=== PATIENT | male | born 1945 | race African-American/Black ===

== ENCOUNTER 2016-09-15 09:45 | Emergency (ER) | payer OTHER ==
[2016-09-15 10:25] LABS: URINE SOURCE CLEAN CATCH
[2016-09-15 10:38] LABS: BILIRUBIN URINE NEGATIVE (NEGATIVE); BLOOD URINE 4+ (NEGATIVE); CLARITY VERY CLOUDY (CLEAR); COLOR AMBER; GLUCOSE URINE NEGATIVE (NEGATIVE); LEUKOCYTES URINE 2+ (NEGATIVE); NITRITE URINE POSITIVE (NEGATIVE); PH URINE 6.5; UROBILINOGEN URINE NORMAL
[2016-09-15 10:47] LABS: URINE CULTURE PL NEEDED? YES; URINE EPITHELIAL CELLS <10 /HPF (<10); URINE RBC TNTC /HPF (<10)
[2016-09-15] MEDS ORDERED: ROCEPHIN IM ONE (11:01)
[2016-09-15] MEDS ORDERED: XYLOCAINE-MPF 1% INJ ONE (11:01)
--- NOTE | 2016-09-15 11:04 | PROVIDER DOCUMENTATION ---
HPI-General Adult - General Source: patient - History of Present Illness -Gen Adult Nature of Presenting Problems: Pt is a 70 yom that presents to er with cc of dysuria x 2 days with diarrhea. Denies abd pain,hematuria,n,v,f. Quality of Pain: reports: burning Severity: reports: moderate Onset/Duration: reports: 2 days ago Timing: reports: still present Similar Symptoms Previously?: No Recently seen or treated by another doctor?: No <Herminio Lombardo - Last Filed: 09/15/16 11:02> <Lorrie Hebert - Last Filed: 09/15/16 12:16> - General Chief Complaint: UTI Symptoms Stated Complaint: UTI SX Time Seen by Provider: 09/15/16 10:59 Allergies/Adverse Reactions: Patient Allergies Allergy/AdvReac Type Severity Reaction Status Date / Time No Known Allergies Allergy Verified 09/15/16 10:14 Home Medications: Home Medication List Medication Instructions Recorded Confirmed Last Taken Type Amlodipine [Norvasc] 10 mg PO DAILY 11/04/14 07/04/16 07/12/15 History Metoprolol [Lopressor] 50 mg PO BID 11/04/14 07/04/16 07/12/15 History Allopurinol 100 mg PO DAILY 05/27/16 07/04/16 Unknown History Ciprofloxacin HCl [Cipro] 500 mg PO BID #14 tablet 05/27/16 07/04/16 Unknown Rx Ergocalciferol (Vitamin D2) 50,000 unit PO DAILY 05/27/16 07/04/16 Unknown History [Vitamin D] Esomeprazole [Nexium] 40 mg PO DAILY 05/27/16 07/04/16 Unknown History Fluticasone Propionate [Children's 50 mcg BRINDA DAILY 05/27/16 07/04/16 Unknown History Flonase Allergy Rlf] Magnesium Oxide [Magnesium] 250 mg PO DAILY 05/27/16 07/04/16 Unknown History Promethazine [Phenergan] 25 mg PO Q6H PRN PRN #12 tablet 05/27/16 07/04/16 Unknown Rx Allopurinol [Zyloprim] 100 mg PO DAILY #30 tablet 07/04/16 Unknown Rx Prednisone 40 mg PO DAILY #10 tablet 07/04/16 Unknown Rx Acetaminophen with Codeine 1 each PO Q6H PRN PRN #20 tablet 07/16/16 Unknown Rx [Tylenol with Codeine #3 Tablet] Magnesium Oxide [Magnesium] 500 mg PO BID #60 capsule 07/16/16 Unknown Rx Naproxen 500 mg PO BID #30 tablet 07/16/16 Unknown Rx Ciprofloxacin HCl [Cipro] 500 mg PO BID #20 tablet 09/15/16 Unknown Rx Review of Systems - Adult - REVIEW OF SYSTEMS - ADULT Constitutional: denies: chills, fever, fatique Eyes: reports: no symptoms reported Ears, Nose, Mouth & Throat: denies: ear pain, sinus problem, throat pain Cardiovascular: reports: no symptoms reported Respiratory: denies: cough, shortness of breath, wheezing Gastrointestinal: reports: diarrhea. denies: abdominal pain, nausea, vomiting Genitourinary: reports: dysuria. denies: frequent UTI's, hematuria Musculoskeletal: reports: no symptoms reported Integumentary: reports: no symptoms reported Neurological: reports: no symptoms reported Psychiatric: reports: no symptoms reported Endocrine: reports: no symptoms reported Hematologic/Lymphatic: reports: no symptoms reported Allergic/Immunologic: reports: no symptoms reported All Other Systems: Reviewed and Negative <Herminio Lombardo - Last Filed: 09/15/16 11:02> Past History - Adult - PAST MEDICAL HISTORY-ADULT Review of Records: reports: Nursing Assessment Review, Medications Reviewed Major Childhood Illnesses: reports: denies history Cardiovascular: reports: CHF, HTN Respiratory: reports: asthma, COPD Gastrointestinal: reports: GERD, hepatitis Genitourinary: reports: prostate cancer - PRIOR SURGERIES/PROCEDURES Surgical/Procedure History: reports: orthopedic (extremity) - IMMUNIZATION STATUS Childhood Immunizations: See Nurse Assessment Flu Vaccine: See Nurse Assessment - SOCIAL HISTORY Smoking: cigarettes, less than 1 pack/day Provider spent 3-5 mins advising pt. on dangers of tobacco.: Discussed manners to quit use, and f/u contacts for add'l counseling. Substance Use: none/never <Herminio Lombardo - Last Filed: 09/15/16 11:02> Physical Exam-General - PHYSICAL EXAM-ADULT Initial Vital Signs Reviewed: Yes - CONSTITUTIONAL General Appearance: appears well, alert, no apparent distress - EYES Eyes: PERRL/EOMI - HEAD, EARS, NOSE, MOUTH & THROAT HENMT: moist mucous membranes, normal ENT inspection, TMs normal, pharynx normal - RESPIRATORY Respiratory: chest non-tender, lungs clear, normal breath sounds, no pleuratic chest pain, no respiratory distress, no accessory muscle use - CARDIOVASCULAR Cardiovascular: regular rate, rhythm, no edema, no gallop, no JVD, no murmur - GASTROINTESTINAL (ABDOMEN) Abdominal Exam: normal bowel sounds, non tender, soft, no organomegaly, no pulsatile mass - MUSCULOSKELETAL Back Exam: normal inspection, no CVA tenderness, no vertebral tenderness Extremity: normal range of motion, non-tender, normal gait - SKIN Integumentary: normal color, normal turgor, warm/dry - PSYCHIATRIC Psych/Mental Status: normal mood/affect, normal thought content, normal thought process, oriented x 3 <Herminio Lombardo - Last Filed: 09/15/16 11:02> Progress - PLAN OF CARE/RESULTS Progress/Plan/Lab Results: Orders Category Date Time Status CBC WITH DIFF [HEME] Stat Lab 09/15/16 11:[address] W/POSS RFLX CULT [URINALYSIS] Stat Lab 09/15/16 10:15 Completed URINE CULTURE [RM] Routine Lab 09/15/16 10:47 Ordered CefTRIAXONE [Rocephin] Med 09/15/16 11:01 Discontinued 1 gm IM NOW ONE Lidocaine 1% Pf [Xylocaine-Mpf 1%] Med 09/15/16 11:01 Discontinued 5 ml INJ NOW ONE Vital Signs - 24 hr 09/15/16 10:10 Temperature 98.3 F Pulse Rate 94 H Respiratory 18 Rate Blood Pressure 138/79 O2 Sat by Pulse 95 Oximetry Laboratory Tests 09/15/16 10:15 Urine Source CLEAN CATCH Urine Color ENEDINA Urine Clarity VERY CLOUDY A Urine pH 6.5 Ur Specific [place] 1.020 Urine Protein 3+(500 mg/dL) A Urine Ketones TRACE Urine Blood 4+ Urine Nitrite POSITIVE A Urine Bilirubin NEGATIVE Urine Urobilinogen NORMAL Urine Microscopic RBC TNTC A Urine WBC 2+ A Urine Microscopic WBC 10-20 A Ur Epithelial Cells <10 Urine Bacteria 1+ Urine Glucose NEGATIVE <Herminio Lombardo - Last Filed: 09/15/16 11:02> - PLAN OF CARE/RESULTS Progress/Plan/Lab Results: Laboratory Tests 09/15/16 09/15/16 10:15 11:41 WBC 9.93 RBC 3.76 L Hgb 13.7 L Hct 40.8 L MCV 108.5 H MCH 36.4 H MCHC 33.6 RDW Std Deviation 14.1 Plt Count 198 MPV 10.3 Immature Gran % (Auto) 0.2 Neut % (Auto) 54.0 Lymph % (Auto) 34.4 [place] % (Auto) 10.9 H Eos % (Auto) 0.3 Baso % (Auto) 0.2 Immature Gran # (Auto) 0.02 Neut # (Auto) 5.36 Lymph # (Auto) 3.42 H [place] # (Auto) 1.08 H Eos # (Auto) 0.03 Baso # (Auto) 0.02 Urine Source CLEAN CATCH Urine Color ENEDINA Urine Clarity VERY CLOUDY A Urine pH 6.5 Ur Specific [place] 1.020 Urine Protein 3+(500 mg/dL) A Urine Ketones TRACE Urine Blood 4+ Urine Nitrite POSITIVE A Urine Bilirubin NEGATIVE Urine Urobilinogen NORMAL Urine Microscopic RBC TNTC A Urine WBC 2+ A Urine Microscopic WBC 10-20 A Ur Epithelial Cells <10 Urine Bacteria 1+ Urine Glucose NEGATIVE Orders Category Date Time Status CBC WITH DIFF [HEME] Stat Lab 09/15/16 11:[address] W/POSS RFLX CULT [URINALYSIS] Stat Lab 09/15/16 10:15 Completed URINE CULTURE [RM] Routine Lab 09/15/16 10:47 Ordered CefTRIAXONE [Rocephin] Med 09/15/16 11:01 Discontinued 1 gm IM NOW ONE Lidocaine 1% Pf [Xylocaine-Mpf 1%] Med 09/15/16 11:01 Discontinued 5 ml INJ NOW ONE Vital Signs - 24 hr 09/15/16 10:10 Temperature 98.3 F Pulse Rate 94 H Respiratory 18 Rate Blood Pressure 138/79 O2 Sat by Pulse 95 Oximetry <Lorrie Hebert - Last Filed: 09/15/16 12:16> Departure <Herminio Lombardo - Last Filed: 09/15/16 11:02> - Departure Time of Disposition Order: 12:15 Certified Medical Emergency: Emergent <Lorrie Hebert - Last Filed: 09/15/16 12:16> - Departure DIAGNOSIS: UTI (urinary tract infection) Qualifiers: Urinary tract infection type: site unspecified Hematuria presence: without hematuria Qualified Code(s): N39.0 - Urinary tract infection, site not specified Diarrhea Qualifiers: Diarrhea type: unspecified type Qualified Code(s): R19.7 - Diarrhea, unspecified Disposition: HOME 01 Condition: Stable Additional Instructions: Medication as directed Imodium OTC ED Follow Up Instructions: You have been treated by a care provider in the Emergency Department. These instructions are being provided to you so you can have an understanding of how to care for yourself upon discharge. Upon discharge from the Emergency Department, you are responsible for making arrangements for follow-up care by a physician of your choice. Take all prescribed medications as directed. Return to the Emergency Department immediately for any new or worsening symptoms. You may call the Physician Referral phone number at [phone] to obtain a list of Physicians who are taking new patients. Prescriptions: Ciprofloxacin HCl [Cipro] 500 mg PO BID #20 tablet Referrals: Vijay Mathew MD [Primary Care Provider] - Instructions: Urinary Tract Infection, [id number], Ciprofloxacin tablets, Diarrhea, [id number] Attestation - Scribe Verification/Attestation Scribe:: Herminio Lombardo Acting as Scribe for:: Lorrie Hebert Scribe documention review:: This chart was documented by a scribe and accurately reflects the service the provider performed and the decisions made by the provider. <Herminio Lombardo - Last Filed: 09/15/16 11:02> Physician Attestation
[2016-09-15 11:49] LABS: BASO% 0.2 % (0.0-0.8); EOS# 0.03 X1000 (0.0-0.7); EOS% 0.3 % (0.0-10.0); HEMATOCRIT 40.8 % (42.0-52.0); HEMOGLOBIN 13.7 g/dL (14.0-18.0); IMM GRAN# 0.02 X1000 (0.0-0.04); IMM GRAN% 0.2 % (0.0-0.5); LYMPH# 3.42 X1000 (1.2-3.4); LYMPH% 34.4 % (20.5-51.1); MANUAL DIFF NEEDED? YES; MCH 36.4 PG (27-31); MCHC 33.6 g/dL (33-37); MCV 108.5 FL (81-99); MONO# 1.08 X1000 (0.11-0.59); MONO% 10.9 % (1.7-9.3); MPV 10.3 FL (7.4-10.4); PLT 198 X1000 (130-400); RBC 3.76 XMIL (4.7-6.1)
[2016-09-15 12:19] VITALS: BP 132/77
[2016-09-15 12:28] LABS: LYMPHS 22 % (21-51); MONO 10 % (1-9)
== END 2016-09-15 12:22 | disposition home or self-care (01) ==
LOC: P.ED 09:45
DX: N39.0 Urinary tract infection, site not specified (principal); R19.7 Diarrhea, unspecified; R30.0 Dysuria; I10 Essential (primary) hypertension; J44.9 Chronic obstructive pulmonary disease, unspecified; K21.9 Gastro-esophageal reflux disease without esophagitis; F17.210 Nicotine dependence, cigarettes, uncomplicated; Z79.899 Other long term (current) drug therapy; Z71.6 Tobacco abuse counseling; Z85.46 Personal history of malignant neoplasm of prostate
CPT/HCPCS: 36415; 81001; 85025; 87077; 87088; 96372; J0696

== ENCOUNTER 2016-12-13 15:01 | Inpatient (IN) ==
--- NOTE | 2016-12-13 15:41 | Diag Imaging Result Doc PS360 ---
EXAM: FLAT/UPRIGHT ABD/1 VIEW CHEST HISTORY: abd pain TECHNIQUE: Three views COMPARISON: 05/27/2016 FINDINGS: There is right apical pleural thickening with increased markings similar to the prior exam and believed to be fibrosis. Prominent calcified mediastinal lymph nodes are present on the prior exam as well. No acute infiltrates. No free air beneath the diaphragm. There are coils in the mid abdomen. Questionable slight lead distended bowel loop in the lower left abdomen. No organomegaly. Prominent atherosclerosis. Mild degenerative bone spurs. IMPRESSION: 1.Right apical pleural thickening and fibrosis with large calcified mediastinal lymph nodes 2.Questionable minimally distended bowel loop in the lower left abdomen. No other abnormality. Electronically signed by Matthieu Shi 12/13/2016 3:38 PM
[2016-12-13 16:08] LABS: MANUAL DIFF NEEDED? NO
[2016-12-13 16:19] LABS: BASO% 0.2 % (0.0-0.8); EOS# 0.01 X1000 (0.0-0.7); EOS% 0.1 % (0.0-10.0); HEMATOCRIT 41.6 % (42.0-52.0); IMM GRAN# 0.03 X1000 (0.0-0.04); IMM GRAN% 0.3 % (0.0-0.5); LYMPH# 2.31 X1000 (1.2-3.4); LYMPH% 20.1 % (20.5-51.1); MCH 36.2 PG (27-31); MCHC 33.7 g/dL (33-37); MCV 107.5 FL (81-99); MONO# 1.32 X1000 (0.11-0.59); MONO% 11.5 % (1.7-9.3); MPV 10.8 FL (7.4-10.4); NEUT% 67.8 % (42.2-75.2); PLT 193 X1000 (130-400); RBC 3.87 XMIL (4.7-6.1)
[2016-12-13 16:36] LABS: ALBUMIN 4.3 g/dL (3.5-5.0); CALCIUM 8.9 mg/dL (8.8-10.2); POTASSIUM 3.9 mmol/L (3.5-5.1); TOTAL BILIRUBIN 0.6 mg/dL (0.20-1.00); TOTAL PROTEIN 8.6 g/dL (6.3-8.3)
[2016-12-13] MEDS ORDERED: NS 1,000 ML IV ONE ×2 (17:03→17:14)
[2016-12-13 17:04] LABS: BILIRUBIN URINE 1+ (NEGATIVE); BLOOD URINE NEGATIVE (NEGATIVE); CLARITY SL. CLOUDY (CLEAR); COLOR AMBER; GLUCOSE URINE NEGATIVE (NEGATIVE); LEUKOCYTES URINE 1+ (NEGATIVE); NITRITE URINE NEGATIVE (NEGATIVE); PROTEIN URINE 1+(30 mg/dL) mg/dL (NEGATIVE); SP GRAVITY URINE 1.025; UROBILINOGEN URINE 1+(1 mg/dL)
[2016-12-13 17:10] LABS: URINE CULTURE PL NEEDED? YES; URINE EPITHELIAL CELLS >10 /HPF (<10); URINE SOURCE CLEAN CATCH; URINE WBC <10 /HPF (<10)
--- NOTE | 2016-12-13 17:31 | PROVIDER DOCUMENTATION ---
This chart was entered by Frieda Swann Scribe, acting as scribe for Yashira Landa PA. HPI-Abdominal Pain/GI Problem - General Chief Complaint: Abdominal Pain Stated Complaint: ABD PAIN Time Seen by Provider: 12/13/16 15:46 Source: patient Allergies/Adverse Reactions: Patient Allergies Allergy/AdvReac Type Severity Reaction Status Date / Time No Known Allergies Allergy Verified 09/15/16 10:14 Home Medications: Home Medication List Medication Instructions Recorded Confirmed Last Taken Type Amlodipine [Norvasc] 10 mg PO DAILY 11/04/14 07/04/16 07/12/15 History Metoprolol [Lopressor] 50 mg PO BID 11/04/14 07/04/16 07/12/15 History Allopurinol 100 mg PO DAILY 05/27/16 07/04/16 Unknown History Ciprofloxacin HCl [Cipro] 500 mg PO BID #14 tablet 05/27/16 07/04/16 Unknown Rx Ergocalciferol (Vitamin D2) 50,000 unit PO DAILY 05/27/16 07/04/16 Unknown History [Vitamin D] Esomeprazole [Nexium] 40 mg PO DAILY 05/27/16 07/04/16 Unknown History Fluticasone Propionate [Children's 50 mcg BRINDA DAILY 05/27/16 07/04/16 Unknown History Flonase Allergy Rlf] Magnesium Oxide [Magnesium] 250 mg PO DAILY 05/27/16 07/04/16 Unknown History Promethazine [Phenergan] 25 mg PO Q6H PRN PRN #12 tablet 05/27/16 07/04/16 Unknown Rx Allopurinol [Zyloprim] 100 mg PO DAILY #30 tablet 07/04/16 Unknown Rx Prednisone 40 mg PO DAILY #10 tablet 07/04/16 Unknown Rx Acetaminophen with Codeine 1 each PO Q6H PRN PRN #20 tablet 07/16/16 Unknown Rx [Tylenol with Codeine #3 Tablet] Magnesium Oxide [Magnesium] 500 mg PO BID #60 capsule 07/16/16 Unknown Rx Naproxen 500 mg PO BID #30 tablet 07/16/16 Unknown Rx Ciprofloxacin HCl [Cipro] 500 mg PO BID #20 tablet 09/15/16 Unknown Rx - History of Present Illness-ABD Nature of Presenting Problems: 71 yo M presents to the ER with complaint of abdominal pain and diarrhea x3 days. Denies any nausea/vomiting. States he took a kpex (anti-diarrhea) and states he did not have relief. Describes the pain as cramping. Abdominal Pain Onset Location: reports: generalized abdomen Pain Radiation: reports: no radiation Quality of Pain: reports: cramping Onset/Duration: reports: 3 days ago Associated Symptoms: reports: diarrhea. denies: nausea, vomiting Review of Systems - Adult - REVIEW OF SYSTEMS - ADULT Constitutional: denies: chills, fever Eyes: reports: no symptoms reported Ears, Nose, Mouth & Throat: reports: no symptoms reported Cardiovascular: reports: no symptoms reported Respiratory: reports: no symptoms reported Gastrointestinal: reports: abdominal pain, diarrhea. denies: nausea, vomiting Genitourinary: reports: no symptoms reported Musculoskeletal: reports: no symptoms reported Integumentary: reports: no symptoms reported Neurological: reports: no symptoms reported Psychiatric: reports: no symptoms reported Endocrine: reports: no symptoms reported Hematologic/Lymphatic: reports: no symptoms reported Allergic/Immunologic: reports: no symptoms reported All Other Systems: Reviewed and Negative Past History - Adult - PAST MEDICAL HISTORY-ADULT Review of Records: reports: Nursing Assessment Review, Medications Reviewed Cardiovascular: reports: CHF, HTN Respiratory: reports: asthma, COPD Gastrointestinal: reports: GERD, hepatitis Genitourinary: reports: prostate cancer - PRIOR SURGERIES/PROCEDURES Surgical/Procedure History: reports: orthopedic (extremity) - IMMUNIZATION STATUS Childhood Immunizations: See Nurse Assessment Flu Vaccine: See Nurse Assessment Physical Exam-General - PHYSICAL EXAM-ADULT Initial Vital Signs Reviewed: Yes - CONSTITUTIONAL General Appearance: alert, no apparent distress - EYES Eyes: PERRL/EOMI, pink conjunctivae - HEAD, EARS, NOSE, MOUTH & THROAT HENMT: normocephalic/atraumatic, normal ENT inspection - NECK Neck: supple, normal inspection - RESPIRATORY Respiratory: no respiratory distress, no accessory muscle use - CARDIOVASCULAR Cardiovascular: normal peripheral pulses, regular rate, rhythm - GASTROINTESTINAL (ABDOMEN) Abdominal Exam: non tender, soft, hernia - MUSCULOSKELETAL Back Exam: no CVA tenderness, no vertebral tenderness Extremity: normal gait, normal inspection - SKIN Integumentary: normal color, warm/dry - NEUROLOGIC Neurologic: grossly normal, no motor/sensory deficits - PSYCHIATRIC Psych/Mental Status: normal mood/affect, normal thought content, normal thought process, oriented x 3 Progress - PLAN OF CARE/RESULTS Progress/Plan/Lab Results: Vital Signs - 8 hr 12/13/16 15:09 Temperature 98.8 F Pulse Rate 82 Respiratory Rate 18 Blood Pressure 111/66 O2 Sat by Pulse Oximetry 94 L Orders Category Date Time Status ED: Orthostatic Vital Signs (E as directed Care 12/13/16 15:45 Active NPO Diet 12/13/16 15:13 Active FLAT/UPRIGHT ABD/1 VIEW CHEST [RAD] Stat Exams 12/13/16 15:13 Completed AMYLASE [CHEM] Stat Lab 12/13/16 15:13 Ordered CBC WITH ELECTRONIC DIFF [HEME] Stat Lab 12/13/16 15:13 Ordered COMPREHENSIVE METABOLIC PANEL [CHEM] Stat Lab 12/13/16 15:13 Ordered LIPASE [CHEM] Stat Lab 12/13/16 15:13 Ordered Result Diagrams: 12/13/16 16:00 12/13/16 16:00 - XRAY 1 XRAY Study: Chest, Abdomen Impression: Abnormal (R apical pleural thickening and fibrosis with large calcified mediastinal lymph nodes, questionable minimally distended bowel loop in the lower left abdomen, no other abnormality, per radiologist) Departure - Departure Date of Disposition Decision: 12/13/16 Time of Disposition Decision: 17:29 DIAGNOSIS: Dehydration Acute renal failure Qualifiers: Acute renal failure type: unspecified Qualified Code(s): N17.9 - Acute kidney failure, unspecified Disposition: ADMITTED INPATIENT 09 Certified Medical Emergency: Emergent Condition: Stable Referrals and Follow-Ups: Vijay Mathew MD [Primary Care Provider] - - Critical Care Note This patient required my direct & personal management of CC.: No Attestation - Physician/ JAMIE Attestation Patient care was provided by Advanced Practice Provider:: Yes Advanced Practice Provider:: Yashira Landa Advanced Practice Provider documentation review:: The Mid-level provider documentation, treatment plan and medical decision making was reviewed by the physician who agrees with all treatment and medical decision making by the MLP. This chart was documented by the indicated scribe, (Frieda Swann Scribe) and accurately reflects the services I performed and decisions made by me, Yashira Landa PA, as attested by the provider's signature.
[2016-12-13] MEDS ORDERED: ZOFRAN IV PRN (18:29)
[2016-12-13] MEDS ORDERED: TYLENOL PO PRN (18:44)
[2016-12-13] MEDS ORDERED: SODIUM CHLORIDE 0.9% INJ SCH (20:15)
[2016-12-13] MEDS: PROTONIX IV SCH (22:42)
[2016-12-14] MEDS: NS 1,000 ML IV SCH ×2 (06:42→17:25)
[2016-12-14 06:57] LABS: HEMATOCRIT 33.4 % (42.0-52.0); HEMOGLOBIN 11.1 g/dL (14.0-18.0); MCHC 33.2 g/dL (33-37); MCV 108.4 FL (81-99); MPV 12.2 FL (7.4-10.4); RBC 3.08 XMIL (4.7-6.1)
[2016-12-14 07:06] LABS: ALBUMIN 3.3 g/dL (3.5-5.0); CALCIUM 7.7 mg/dL (8.8-10.2); MAGNESIUM 1.8 mg/dL (1.5-2.7); POTASSIUM 3.4 mmol/L (3.5-5.1); TOTAL BILIRUBIN 0.5 mg/dL (0.20-1.00); TOTAL PROTEIN 6.5 g/dL (6.3-8.3)
--- NOTE | 2016-12-14 07:57 | Diag Imaging Result Doc PS360 ---
KUB ABDOMEN - 12/13/2016 at 2200 INDICATION: SBO ? TECHNIQUE: COMPARISON: 12/13/2016 at 1536 FINDINGS: There is no change from prior. No significant gas distended loops of bowel or colon. IMPRESSION: No change from prior. Electronically signed by Miles Gomez 12/14/2016 7:55 AM
--- NOTE | 2016-12-14 08:22 | PROGRESS NOTE ---
DATE: 12/14/2016 SUBJECTIVE: Patient notes that he is feeling much better. He is tolerating pudding this morning. He is having less abdominal pain. Denies any nausea or vomiting. Denies any dysuria or urinary frequency. Denies any chest pain, palpitations, fevers, or chills. PHYSICAL EXAMINATION: Vital Signs: Temperature 98, pulse 78, respiratory rate 18, BP 103/43, saturations 93-96% on room air. General: Patient is awake, alert, oriented. He is currently in no real respiratory distress. Speech is regular. Memory is intact. HEENT: Normocephalic, atraumatic. Neck: Supple. CV: Regular rate. Chest: Clear. Abdomen: Soft. Positive bowel sounds. Nontender. Nondistended. Extremities: Moves all extremities. Neurologic: No focal changes. Skin: Warm and dry. No rashes. LABS: Sodium 135, potassium 3.4, BUN 39, creatinine 3, calcium 7.7, albumin 3.3. WBCs 9, hemoglobin and hematocrit 11 and 33. ASSESSMENT: 1. Acute on chronic renal failure. Serum creatinine at admission was 4.1. After intravenous fluids overnight, it is down to 3. His baseline is around 1.2-1.7 which was noted in May of 2016. 2. Leukocytosis, resolved, likely secondary to acute inflammatory response. 3. Anemia of chronic disease. 4. Hyponatremia, resolved. 5. Hypokalemia, stable. 6. Volume depletion. 7. Nausea and vomiting. 8. Abdominal pain. PLAN: We will continue patient on IV fluids. Recheck his labs in the a.m. Hopefully home in the next 1-2 days. We will continue to advance his diet to a GI soft. Further orders as needed. cc: Xavier Gaston MD
[2016-12-14] MEDS: PROTONIX IV SCH ×2 (08:37→20:14)
--- NOTE | 2016-12-14 08:58 | HISTORY AND PHYSICAL ---
PRIMARY CARE PHYSICIAN: Dr. Vijay Mathew. CHIEF COMPLAINT: Abdominal pain with diarrhea for 3 days that had progressively worsened. HISTORY OF PRESENTING ILLNESS: This is a 71-year-old, male who presented to [facility] ER with complaints of abdominal pain and diarrhea for 3 days. Workup in the ER showed an abdomen x-ray with no change from prior. No significant gas, distended loops of bowel or colon. Laboratory data showed a sodium of 134, a chloride of 86, a BUN of 41, with a creatinine of 4.1, glucose was 141. Urinalysis was negative. He was admitted for further evaluation and treatment. PAST MEDICAL HISTORY: Chronic alcoholism, hepatitis, prostate cancer, and COPD. PAST SURGICAL HISTORY: An ORIF of the hip. FAMILY HISTORY: Noncontributory. SOCIAL HISTORY: Currently lives alone. He is a 1 pack a day smoker and has been so for the past 30 years. Alcohol use, he states he drinks daily of either beer or gin but only admitted to 1-2 beers and 2-3 shots of gin daily. Denied any illicit drug use. ALLERGIES: He has no known drug allergies. HOME MEDICATIONS: We will obtain a current list of his home medications and restart as appropriate. LABORATORY DATA: Showed a white blood cell count of 11.51, a hemoglobin of 14, hematocrit 41.6, platelets 193,000. Sodium of 134, potassium 3.9, chloride 86, CO2 23, BUN of 41, creatinine 4.1, glucose 141. Amylase of 102, lipase 39. Urinalysis was negative. An abdomen x-ray showed no significant gas, distended loops of bowel or colon, with no change from prior. REVIEW OF SYSTEMS: He denied any fever, chills, blurred vision, dizziness, chest pain, coughing, shortness of breath. He was positive for generalized abdominal pain. Denied any nausea or vomiting. Was positive for diarrhea. Denied any burning or hurting with urination. PHYSICAL EXAMINATION: VITAL SIGNS: On arrival, he had a temperature of 98.8 degrees, pulse 82, respirations 18. Blood pressure 111/66, saturating 94% on room air. GENERAL: This is a 71-year-old, male who is lying in the bed and answers questions appropriately. HEENT: Normocephalic and atraumatic. Pupils are equal, round, and reactive to light. The extraocular movements are intact. The oropharynx and nares are clear. NECK: Supple. LUNGS: Clear to auscultation bilaterally with equal lung expansion and chest wall movement. HEART: With regular rate and rhythm. No murmurs, rubs, or gallops. ABDOMEN: Soft, nontender, nondistended. Bowel sounds are present x4 quadrants. EXTREMITIES: No clubbing, cyanosis, or edema. NEUROLOGICAL: The cranial nerves 2-12 appear grossly intact. ASSESSMENT: 1. Dehydration. 2. Acute kidney injury. 3. Ethanol abuse. 4. Tobacco abuse. PLAN: He was admitted to the medical unit at [place]. Placed on a GI soft diet. On normal saline at 100 mL an hour, Protonix 40 mg IV q.12. We will verify his home medications and recheck labs in the a.m. of a CBC and CMP. Discussed smoking cessation and ETOH cessation with this patient who verbalizes understanding but does not appear to have any plans to quit at this time. Dictated by ROCKY Estrada for Xavier Gaston MD cc: ROCKY Estrada MD Malcolm R. Hendricks, MD
[2016-12-15] MEDS: NS 1,000 ML IV SCH (03:38)
[2016-12-15 06:44] LABS: HEMATOCRIT 33.9 % (42.0-52.0); HEMOGLOBIN 11.3 g/dL (14.0-18.0); MCH 36.5 PG (27-31); MCHC 33.3 g/dL (33-37); MCV 109.4 FL (81-99); MPV 11.9 FL (7.4-10.4); RBC 3.1 XMIL (4.7-6.1)
[2016-12-15 06:54] LABS: ALBUMIN 3.2 g/dL (3.5-5.0); POTASSIUM 3.4 mmol/L (3.5-5.1); TOTAL BILIRUBIN 0.4 mg/dL (0.20-1.00); TOTAL PROTEIN 6.4 g/dL (6.3-8.3)
[2016-12-15] MEDS ORDERED: ZYLOPRIM PO SCH (09:00)
[2016-12-15] MEDS: PROTONIX IV SCH (09:45)
--- NOTE | 2016-12-15 11:27 | DISCHARGE SUMMARY ---
ADMISSION DATE: 12/13/2016 DISCHARGE DATE: 12/15/2016 PRIMARY CARE PHYSICIAN: Dr. Vijay Mathew. ADMISSION DIAGNOSES: 1. Dehydration. 2. Acute kidney injury. 3. Ethanol abuse. 4. Tobacco abuse. DISCHARGE DIAGNOSES: 1. Dehydration resolved. 2. Acute kidney injury improved. 3. Ethanol abuse. 4. Tobacco abuse. SUMMARY OF FINDINGS: This is a 71-year-old male, who presented with complaints of abdominal pain and diarrhea for 3 days prior to arrival that progressively worsened. Workup in the ER showed an abdomen x-ray with no significant gas, distended loops of bowel or colon. No change from prior. He had a sodium of 134, chloride of 86. A BUN of 41 with a creatinine of 4.1. Urinalysis was negative. He was admitted, placed on IV hydration, Protonix 40 mg IV q.12. Discussed smoking cessation and ETOH cessation with this patient who verbalized understanding. His creatinine has improved now down to 1.8. His sodium is normal at 137. His white blood cell count is normal. He has been afebrile. He is tolerating food well and it is felt that he can safely be discharged home today. DISCHARGE MEDICATIONS: He will continue his home medication of allopurinol 100 mg p.o. daily, Norvasc 5 mg p.o. daily, vitamin D2 67836 units p.o. as directed, Nexium 40 mg p.o. daily, magnesium 250 mg p.o. daily and Lopressor 50 mg p.o. b.i.d. FOLLOWUP: He will follow up with his primary care physician in 1-2 weeks. All discharge instructions were reviewed with the patient and he verbalized understanding. 35 minute discharge. Dictated by ROCKY Estrada for Xavier Gaston MD cc: ROCKY Estrada MD Malcolm R. Hendricks, MD
[2016-12-15 11:44] VITALS: BP 122/47
== END 2016-12-15 12:29 | disposition home or self-care (01) ==
LOC: P.ED 15:01 → P.MEDSURG 17:35
PROVIDERS: ATTEND Family Medicine